=== PATIENT | female | born 1965 | race Caucasian/White ===

== ENCOUNTER 2020-09-19 00:48 | Emergency (ER) | payer SELFPAY ==
[2020-09-19] MEDS ORDERED: DICLOFENAC SODI75 MG PO (01:14)
[2020-09-19] MEDS ORDERED: CYCLOBENZAPRINE10 MG PO (01:14)
== END 2020-09-19 01:23 | disposition home or self-care (01) ==
LOC: FER 00:48
DX: S13.4XXA Sprain of ligaments of cervical spine, initial encounter (principal); S40.022A Contusion of left upper arm, initial encounter; Z85.828 Personal history of other malignant neoplasm of skin; V49.40XA Driver injured in collision with unspecified motor vehicles in traffic accident, initial encounter; Y92.410 Unspecified street and highway as the place of occurrence of the external cause
CPT/HCPCS: 99284